=== PATIENT | female | born 1985 | race Two or more races ===

== ENCOUNTER 2018-12-08 12:17 | Emergency (ER) | payer SELFPAY ==
[~2018-12-08] VITALS: Ht 165.1 cm; Wt 85.3 kg
[2018-12-08 12:26] VITALS: BP 105/78
[2018-12-08 13:12] LABS: Urine Bacteria NONE SEEN /hpf (None Seen); Urine Blood 1+ /uL (Negative); Urine Specific Gravity 1.014 (1.001-1.035); Urine WBC 1 /hpf (0 - 5)
[2018-12-08 14:19] LABS: Eosinophils # (auto) 0.2 uL; Lymphocytes # (auto) 1.3 uL; Monocytes # (auto) 0.4 uL; Platelet Count (auto) 289 10^3/uL (140-450)
[2018-12-08 14:21] LABS: Basophils # (auto) 0 uL; Basophils % (auto) 0.7 % (0.0-2.0); Eosinophils % (auto) 2.9 % (0.0-7.0); Lymphocytes % (auto) 18.6 % (10.0-50.0); Mean Corpuscular Hemoglobin 22.3 pg (28.0-32.0); Mean Corpuscular Hgb Conc. 31.4 g/dL (32.0-36.0); Mean Corpuscular Volume 70.9 fL (80.0-100.0); Monocytes % (auto) 5.4 % (0.0-12.0); Neutrophils % (auto) 72.4 % (37.0-80.0); Red Blood Cells 4.51 10^6/uL (4.0-5.20); Red Cell Distribution Width 17.6 % (11.8-14.3); White Blood Cell 6.9 10^3/uL (4.4-10.8)
== END 2018-12-08 15:20 | disposition home or self-care (01) ==
LOC: ER 12:26
DX: N83.201 Unspecified ovarian cyst, right side (principal); D25.9 Leiomyoma of uterus, unspecified; D64.9 Anemia, unspecified
CPT/HCPCS: 36415; 76856; 81001; 81025; 84702; 85025

== ENCOUNTER 2021-06-19 10:54 | Emergency (ER) | payer MEDICAID ==
[~2021-06-19] VITALS: Ht 160 cm; Wt 74.8 kg
[2021-06-19 11:58] VITALS: BP 146/49
== END 2021-06-19 12:48 | disposition home or self-care (01) ==
LOC: ER 10:55
DX: S62.632A Displaced fracture of distal phalanx of right middle finger, initial encounter for closed fracture (principal); S60.418A Abrasion of other finger, initial encounter; W18.39XA Other fall on same level, initial encounter; Y93.89 Activity, other specified; Y92.89 Other specified places as the place of occurrence of the external cause; Y99.8 Other external cause status
CPT/HCPCS: 29125; 29130; 73130